=== PATIENT | male | born 1985 | race Caucasian/White ===

== ENCOUNTER 2016-11-15 17:51 | Inpatient (IN) ==
[2016-11-15 18:55] LABS: Hematocrit 45.9 % (37.5-50.1); Hemoglobin 15.9 g/dL (12.9-16.9); Mean Corpuscular HGB Conc 34.6 g/dL (31.6-35.5); Mean Corpuscular Hemoglobin 30.9 pg (28.0-33.3); Mean Corpuscular Volume 89.3 fL (83.0-100.0); Mean Platelet Volume 10.3 fL (9.4-12.4); Platelet Count 229 K/mcL (140-400); Red Blood Count 5.14 M/mcL (4.19-5.50); Red Cell Distribution Width 11.9 % (11.5-14.5)
--- NOTE | 2016-11-15 18:58 | Emergency Department Note ---
Disposition Clinical Impression: Suicidal ideation Disposition: Admitted As Inpatient Condition: Fair Psych HPI - General Chief Complaint: ED Psychiatric Symptoms Stated Complaint: psych eval/SI Time Seen by Provider: 11/15/16 18:03 Source: patient Nursing Notes Reviewed: Yes Vital Signs Reviewed: Yes - History of Present Illness HPI Narrative: The patient does have a history of psychiatric illness and he does have a history of substance abuse including crack as well as pills and he presents with depression and crying which has been going on for some time it was the last several days, constant, no medication has been used and the patient does have suicidal ideation. Does have a plan to take pills to overdose. He has tried to overdose in the past. Social history: Smoker, occasional alcohol, crack as well as pill use. He is here with his mother. - Related Data Home Medications Medication Instructions Recorded Confirmed No Known Home Drugs 11/15/16 11/15/16 Allergies Allergy/AdvReac Type Severity Reaction Status Date / Time No Known Allergies Allergy Verified 11/15/16 17:56 Review of Systems: Constitutional: No fever Vision: No blurred vision ENT: No rhinorrhea Respiratory: No cough Allergic: No allergies : No blood in urine GI: No blood in stool Hematologic: No bruising Dermatologic: No skin rash Musculoskeletal: No pain in the extremities Neuro: No numbness of the extremities Past Medical History - Past Medical History Medical history: Reports: no medical history - Social History Smoking Status: Current every day smoker Alcohol use: Reports: none Drug use: Reports: cocaine, other Physical Exam CONSTITUTIONAL: Alert and oriented X3, well-nourished, well appearing, in no apparent distress HEAD: Normocephalic; atraumatic. EYES: PERRL, no scleral icterus. NOSE: The nose is normal in appearance without rhinorrhea RESP: Normal chest excursion with respiration; breath sounds clear and equal bilaterally; no wheezes, rhonchi, or rales CARD: Regular rhythm, without murmurs, rub or gallop ABD: Non-distended; non-tender, soft,without rigidity, rebound or guarding SKIN: Normal for age and race; warm and dry; no apparent lesions - General Limitations: no limitations General appearance: alert Course Vital Signs Temperature 97.4 F L 11/15/16 17:52 Pulse Rate 71 11/15/16 17:52 Respiratory Rate 16 11/15/16 17:52 Blood Pressure 136/90 11/15/16 17:52 O2 Sat by Pulse Oximetry 98 11/15/16 17:52 Temperature 98.8 F 11/15/16 21:45 Pulse Rate 81 11/15/16 21:45 Respiratory Rate 14 11/15/16 21:45 Blood Pressure 109/77 11/15/16 21:45 O2 Sat by Pulse Oximetry 97 11/15/16 20:32 Oxygen Delivery Oxygen Delivery Room Air Psych - MDM Narrative Medical decision making narrative: The patient does have orders for labs, 1A is consulted, I did write for a sitter. The patient is currently resting comfortably in the bed. His mother is at bedside. 1857 - Lab Data Result diagrams: 11/15/16 18:23 11/15/16 18:23 Lab Results 11/15/16 11/15/16 11/15/16 Range/Units 18:12 18:23 18:23 WBC 8.1 (4.3-11.1) K/mcL RBC 5.14 (4.19-5.50) M/mcL Hgb 15.9 (12.9-16.9) g/dL Hct 45.9 (37.5-50.1) % MCV 89.3 (83.0-100.0) fL MCH 30.9 (28.0-33.3) pg MCHC 34.6 (31.6-35.5) g/dL RDW 11.9 (11.5-14.5) % Plt Count 229 (140-400) K/mcL MPV 10.3 (9.4-12.4) fL Sodium 136 (136-145) mEq/L Potassium 3.7 (3.5-4.5) mEq/L Chloride 102 (98-109) mEq/L Carbon Dioxide 22 (19-29) mEq/L BUN 11 (8-26) mg/dL Creatinine 0.93 (0.72-1.25) mg/dL Est GFR ( Amer) > 60 (> 60) Est GFR (Non-Af Amer) > 60 (> 60) BUN/Creatinine Ratio 12 (6-26) Glucose 103 H (70-99) mg/dL Calculated Osmolality 282 (280-300) Calcium 9.4 (8.6-10.8) mg/dL Salicylates < 5.0 L (15-30) mg/dL Urine Opiates Screen Negative (Mkzfxl=961) ng/mL Acetaminophen < 1.0 L (10-30) mcg/mL Ur Barbiturates Screen Negative (Btxong=632) ng/mL Ur Phencyclidine Scrn Negative (Cutoff=25) ng/mL Ur Amphetamines Screen Positive H (Nwadta=4983) ng/mL U Benzodiazepines Scrn Negative (Prvpac=518) ng/mL Urine Cocaine Screen Positive H (Cutoff= 300) ng/mL U Marijuana (THC) Screen Positive H (Cutoff = 50) ng/mL Ethyl Alcohol < 10 (0-10) mg/dL Psychiatric Medical Clearance - Medical Clearance Checklist Medical History: No Social History Section defined Current Vitals: Last Vital Signs Temp 98.8 F 11/15/16 21:45 Pulse 81 11/15/16 21:45 Resp 14 11/15/16 21:45 BP 109/77 11/15/16 21:45 Pulse Ox 97 11/15/16 20:32 Psychiatric Lab Panel: Drug Levels and Toxicity 11/15/16 11/15/16 18:12 18:23 Urine Opiates Screen Negative Acetaminophen < 1.0 L Ur Barbiturates Screen Negative Ur Phencyclidine Scrn Negative Ur Amphetamines Screen Positive H U Benzodiazepines Scrn Negative Urine Cocaine Screen Positive H U Marijuana (THC) Screen Positive H Ethyl Alcohol < 10 Abnormal Labs: Abnormal lab results Glucose 103 mg/dL (70-99) H 11/15/16 18:23 Salicylates < 5.0 mg/dL (15-30) L 11/15/16 18:23 Acetaminophen < 1.0 mcg/mL (10-30) L 11/15/16 18:23 Ur Amphetamines Screen Positive ng/mL (Ksqqob=3841) H 11/15/16 18:12 Urine Cocaine Screen Positive ng/mL (Cutoff= 300) H 11/15/16 18:12 U Marijuana (THC) Screen Positive ng/mL (Cutoff = 50) H 11/15/16 18:12 Statement of Medical Clearance: I have evaluated the patient, reviewed diagnostic information, and certify that the patient's medical condition is sufficiently stable that transfer to the psychiatric unit does not pose a significant risk of deterioration.
[2016-11-15 19:05] LABS: Amphetamine Screen,Urine Positive ng/mL (Cutoff=1000); Barbiturate Screen,Urine Negative ng/mL (Cutoff=200); Benzodiazepines Screen,Urine Negative ng/mL (Cutoff=200); Cannabinoid Screen,Urine Positive ng/mL (Cutoff = 50); Cocaine Screen,Urine Positive ng/mL (Cutoff= 300); Opiate Screen,Urine Negative ng/mL (Cutoff=300); Phencyclidine Screen,Urine Negative ng/mL (Cutoff=25)
[2016-11-15 19:07] LABS: BUN/Creatinine Ratio 12 (6-26); Blood Urea Nitrogen 11 mg/dL (8-26); Calcium 9.4 mg/dL (8.6-10.8); Carbon Dioxide 22 mEq/L (19-29); Chloride 102 mEq/L (98-109); Glucose 103 mg/dL (70-99); Osmolality,Calculated 282 (280-300); Potassium 3.7 mEq/L (3.5-4.5); Sodium 136 mEq/L (136-145); eGFR For African Americans > 60 (> 60); eGFR For Non-African Americans > 60 (> 60)
[2016-11-15 19:15] LABS: Acetaminophen < 1.0 mcg/mL (10-30); Ethanol < 10 mg/dL (0-10); Salicylate < 5.0 mg/dL (15-30)
[2016-11-15] MEDS ORDERED: diazePAM 10 MG TABLET PO ONE (21:15)
[2016-11-15] MEDS ORDERED: hydrOXYzine pamoate 25 MG CAPSULE PO PRN (21:39)
[2016-11-15] MEDS ORDERED: Mag Hydrox/Al Hydrox/Simeth 30 ML UDC PO PRN (21:39)
[2016-11-15] MEDS ORDERED: *HR* LORazepam 1 MG TABLET PO PRN (21:39)
[2016-11-15] MEDS ORDERED: *HR* LORazepam 2 MG/ML VIAL IM PRN (21:39)
[2016-11-15] MEDS ORDERED: Haloperidol Lactate 5 MG/ML VIAL IM PRN (21:39)
[2016-11-15] MEDS ORDERED: MOM Conc 10 ML UD.LIQ PO PRN (21:39)
[2016-11-15] MEDS ORDERED: Acetaminophen 325 MG TABLET PO PRN (21:39)
--- NOTE | 2016-11-16 12:54 | Psychiatry History & Physical ---
Date of Encounter: 11/16/16 Time of Encounter: 12:50 History of Present Illness Patient Stated Chief Complaint: Suicidal Medicare Admission Attestation: For traditional Medicare patients the provided hospital inpatient services are reasonable and necessary and in the case of services not specified as inpatient -only under 42 CFR 419.22 (n), that they are appropriately provided as inpatient services in accordance 42 CFR 412.3. For Critical Access Hospital the patient may reasonably be expected to be discharged or transferred to a hospital within 96 hours after admission to the Critical Access Hospital. Admitted From: Emergency Dept History of Present Illness: Mr. Chris is a 31 year old male admitted from the emergency room for evaluation and treatment of depression and suicidal ideation and substance abuse and dependence. Patient had no previous history of psychiatric treatment he was treated for ADHD as a child he has been on disability for most of his life and he had a third grade level education and no history of employment and he spent all his time looking for drugs to use including amphetamine and marijuana and cocaine. His labs showed positive screen for cocaine and amphetamine and THC. Patient states he became helpless and hopeless and he was thinking about suicide and he was attempting to get help as an outpatient and he could not get any appointments as a result he came to the emergency room. Past Med Surg Social Fam HX - Past Medical History Medical history: no medical history - Past Psychiatric History Psychiatric history: Reports: no psych history Family psychiatric history: Unknown Family History of Suicide: Unknown - Past Surgical History Surgical History: no surgical history - Social History Smoking Status: Current every day smoker Smokeless Tobacco Status: No Alcohol use: none Drug use: cocaine, other - Family History Mother Hx Family Cancer: Yes Medications & Allergies No Known Home Drugs 11/15/16 [History] Allergies No Known Allergies Allergy (Verified 11/15/16 17:56) Review of Systems Psychiatric: Reports: depression, abnormal sleep pattern, suicidal ideation, hopelessness, irritability, mood swings, other (Polysubstance dependence. Cocaine, amphetamine and THC) Mental Status Exam Patient orientation: Yes Person, Yes Time, Yes Place Level of alertness: Alert Patient appearance: Appropriate, Disheveled, Average Behavior: cooperative, nervous, anxious, restless, guarded Psychomotor activity: Increased Eye contact: Maintains Eye Contact Mood description: Depressed, Anxious, Labile, Irritable Affect description: congruent with mood, labile, constricted, dysphoric Speech pattern: Normal rate, Normal rhythm, Normal tone Speech volume: Normal Thought process: Linear, Goal Oriented Thought content: Yes Suicidal ideation, No Homicidal ideation, No Overt delusions Perceptual disturbances: No Auditory hallucinations, No Visual hallucinations Attention span: Capable of Focused Attention Memory description: Grossly Intact, Remote Impaired Patient reliability: Questionable Historian Intelligence estimate: Average Judgment: Limited Insight: Partial Results - Vital Signs Vital signs: Temp Pulse Resp BP Pulse Ox 98.2 F 61 16 102/58 97 11/16/16 09:00 11/16/16 09:00 11/16/16 09:00 11/16/16 09:00 11/15/16 20:32 - Labs Labs: Laboratory Last Values WBC 8.1 K/mcL (4.3-11.1) 11/15/16 18:23 RBC 5.14 M/mcL (4.19-5.50) 11/15/16 18:23 Hgb 15.9 g/dL (12.9-16.9) 11/15/16 18:23 Hct 45.9 % (37.5-50.1) 11/15/16 18:23 MCV 89.3 fL (83.0-100.0) 11/15/16 18:23 MCH 30.9 pg (28.0-33.3) 11/15/16 18:23 MCHC 34.6 g/dL (31.6-35.5) 11/15/16 18:23 RDW 11.9 % (11.5-14.5) 11/15/16 18:23 Plt Count 229 K/mcL (140-400) 11/15/16 18:23 MPV 10.3 fL (9.4-12.4) 11/15/16 18:23 Sodium 136 mEq/L (136-145) 11/15/16 18:23 Potassium 3.7 mEq/L (3.5-4.5) 11/15/16 18:23 Chloride 102 mEq/L (98-109) 11/15/16 18:23 Carbon Dioxide 22 mEq/L (19-29) 11/15/16 18:23 BUN 11 mg/dL (8-26) 11/15/16 18:23 Creatinine 0.93 mg/dL (0.72-1.25) 11/15/16 18:23 Est GFR ( Amer) > 60 (> 60) 11/15/16 18:23 Est GFR (Non-Af Amer) > 60 (> 60) 11/15/16 18:23 BUN/Creatinine Ratio 12 (6-26) 11/15/16 18:23 Glucose 103 mg/dL (70-99) H 11/15/16 18:23 Calculated Osmolality 282 (280-300) 11/15/16 18:23 Calcium 9.4 mg/dL (8.6-10.8) 11/15/16 18:23 Salicylates < 5.0 mg/dL (15-30) L 11/15/16 18:23 Urine Opiates Screen Negative ng/mL (Vkwsak=289) 11/15/16 18:12 Acetaminophen < 1.0 mcg/mL (10-30) L 11/15/16 18:23 Ur Barbiturates Screen Negative ng/mL (Vkilpd=818) 11/15/16 18:12 Ur Phencyclidine Scrn Negative ng/mL (Cutoff=25) 11/15/16 18:12 Ur Amphetamines Screen Positive ng/mL (Ouclyu=7279) H 11/15/16 18:12 U Benzodiazepines Scrn Negative ng/mL (Pqyvjb=755) 11/15/16 18:12 Urine Cocaine Screen Positive ng/mL (Cutoff= 300) H 11/15/16 18:12 U Marijuana (THC) Screen Positive ng/mL (Cutoff = 50) H 11/15/16 18:12 Ethyl Alcohol < 10 mg/dL (0-10) 11/15/16 18:23 Assessment and Plan (1) Mood disorder, drug-induced Current visit: Yes Status: Acute Plan: Admit inpatient for safety and stabilization, Close observation, Suicide Precautions per unit protocol, Encourage participation in unit milieu, Group Therapy, Monitor sleep, Monitor appetite Additional Plan: We will start patient on Depakote and citalopram benefits and side effects were discussed patient is agreeable to start treatment and we will monitor. Risks, benefits, side effects, alternatives discussed w/pt: Yes Patient agreeable to treatment: Yes (2) Polysubstance dependence including opioid type drug, continuous use Current visit: Yes Status: Acute Plan: Admit inpatient for safety and stabilization, Close observation, Suicide Precautions per unit protocol, Encourage participation in unit milieu, Group Therapy, Monitor sleep, Monitor appetite Risks, benefits, side effects, alternatives discussed w/pt: Yes Patient agreeable to treatment: Yes
[2016-11-16] MEDS: Divalproex (12 HR) 500 MG TABLET PO SCH ×2 (13:37→20:07)
[2016-11-16] MEDS: traZODone 50 MG TABLET PO PRN (20:07)
[2016-11-17] MEDS: Divalproex (12 HR) 500 MG TABLET PO SCH ×2 (08:51→20:37)
--- NOTE | 2016-11-17 13:34 | Psychiatry Progress Note ---
Date of Encounter: 11/17/16 Time of Encounter: 13:30 Subjective Interval history: Patient she will follow-up. Staff reports he is compliant with medication and denied any side effects. He reports improved sleep and less anxiety. I had a long discussion with him regarding this medication and compliance with treatment. I explained the benefits of medication and and blood level check to adjust the dose of Depakote. He is optimistic and encouraged not to use drugs anymore and also still interested in drug rehabilitation. He denies any withdrawal symptoms. And he denies any suicidal ideation. Review of Systems Psychiatric: Reports: depression, abnormal sleep pattern, suicidal ideation, hopelessness, irritability, mood swings, other (Polysubstance dependence. Cocaine, amphetamine and THC) Objective: Exam Patient orientation: Yes Person, Yes Time, Yes Place Level of alertness: Alert Patient appearance: Appropriate, Disheveled, Average Behavior: calm, cooperative, anxious, restless Psychomotor activity: Normal Eye contact: Maintains Eye Contact Mood description: Euthymic/stable, Anxious, Labile, Irritable Affect description: congruent with mood, labile Speech pattern: Normal rate, Normal rhythm, Normal tone Speech volume: Normal Thought process: Linear, Goal Oriented Thought content: No Suicidal ideation, No Homicidal ideation, No Overt delusions Perceptual disturbances: No Auditory hallucinations, No Visual hallucinations Judgment: Limited Insight: Partial Results - Vital Signs Vital Signs: Temp Pulse Resp BP Pulse Ox 98.4 F 99 16 104/69 97 11/17/16 08:59 11/17/16 08:59 11/16/16 20:30 11/17/16 08:59 11/15/16 20:32 Assessment and Plan (1) Mood disorder, drug-induced Current visit: Yes Status: Acute Plan: Continue hospitalization, Close observation, Suicide Precautions per unit protocol, Encourage participation in unit milieu, Group Therapy, Monitor sleep, Monitor appetite Additional Plan: Will check Depakote level in a.m. Risks, benefits, side effects, alternatives discussed w/pt: Yes Patient agreeable to treatment: Yes (2) Polysubstance dependence including opioid type drug, continuous use Current visit: Yes Status: Acute Plan: Continue hospitalization, Close observation, Suicide Precautions per unit protocol, Encourage participation in unit milieu, Group Therapy, Monitor sleep, Monitor appetite Risks, benefits, side effects, alternatives discussed w/pt: Yes Patient agreeable to treatment: Yes Consult Discharge Plan - Plan Referrals: NO,PCP [Primary Care Provider] -
[2016-11-17] MEDS: traZODone 50 MG TABLET PO PRN (20:46)
[2016-11-18] MEDS: Divalproex (12 HR) 500 MG TABLET PO SCH ×2 (09:12→21:48)
--- NOTE | 2016-11-18 19:09 | Psychiatry Progress Note ---
Date of Encounter: 11/18/16 Time of Encounter: 19:00 Subjective Interval history: Pt reports taht he is feeling better with no suicidal thoughts. He is still very much intereasted in pursuing treatment for cocaine use after leaving here and has lined up one . He is sleeping OK with a sleeper and his mood is stable now. Review of Systems Psychiatric: Reports: depression, abnormal sleep pattern, irritability, other ( Polysubstance dependence. Cocaine, amphetamine and THC) Objective: Exam Patient orientation: Yes Person, Yes Time, Yes Place Level of alertness: Alert Patient appearance: Appropriate, Well Groomed, Average Behavior: calm, cooperative Psychomotor activity: Normal Eye contact: Maintains Eye Contact Mood description: Euthymic/stable, Anxious, Irritable Affect description: congruent with mood, labile Speech pattern: Normal rate, Normal rhythm, Normal tone Speech volume: Normal Thought process: Linear, Goal Oriented Thought content: No Suicidal ideation, No Homicidal ideation, No Overt delusions Perceptual disturbances: No Auditory hallucinations, No Visual hallucinations Judgment: Limited Insight: Partial Results - Vital Signs Vital Signs: Temp Pulse Resp BP Pulse Ox 98.2 F 69 16 113/69 97 11/18/16 09:00 11/18/16 09:00 11/18/16 09:00 11/18/16 09:00 11/15/16 20:32 Assessment and Plan (1) Mood disorder, drug-induced Current visit: Yes Status: Acute Plan: Continue hospitalization, Close observation, Encourage participation in unit milieu, Group Therapy, Monitor sleep, Monitor appetite Additional Plan: Will check Depakote level in a.m. Depakote level slightly low but is a non steady state level. Recommend that pt should get on Naltrexone for his AOD. Risks, benefits, side effects, alternatives discussed w/pt: Yes Patient agreeable to treatment: Yes Consult Discharge Plan - Plan Referrals: [facility] [Outside] Raymon Nash, PAC [Physician Biology Lecturer] -
[2016-11-18] MEDS: traZODone 50 MG TABLET PO PRN (21:49)
[2016-11-19] MEDS: Divalproex (12 HR) 500 MG TABLET PO SCH (08:32)
[2016-11-19 10:28] VITALS: BP 115/75
--- NOTE | 2016-11-19 16:06 | Discharge Summary ---
Date of Encounter: 11/19/16 Time of Encounter: 14:00 Diagnosis - Discharge Diagnosis (1) Mood disorder, drug-induced Status: Acute Medications - Discharge Medications Prescriptions: Citalopram [CeleXA] 20 mg PO DAILY #30 tablet Divalproex (12 HR) [Depakote (12 HR)] 500 mg PO BID #60 tablet. TraZODone 50 mg PO HS PRN #14 tablet PRN Reason: Insomnia Citalopram [CeleXA] 20 mg PO DAILY #30 tablet 11/19/16 [Rx] Divalproex (12 HR) [Depakote (12 HR)] 500 mg PO BID #60 tablet. 11/19/16 [Rx] TraZODone 50 mg PO HS PRN #14 tablet 11/19/16 [Rx] Allergies No Known Allergies Allergy (Verified 11/15/16 17:56) Results Procedures and tests throughout hospitalization: Completed Lab Orders Category Date Time Status Valproate Routine Lab 11/17/16 14:20 Completed Provider Date of admission: 11/15/16 21:39 Primary care physician: PCP NO Discharging clinician: aMgen Johnson Assessment and Plan - Follow up Plan Follow up with: [facility] [Outside] - 11/26/16 11:30 am (The above appointment is with Frances Yancey, counselor at [facility]. Your first appointment will be very thorough and the total appointment time will take between two and three hours. You will be completing paperwork, meeting with a counselor and a nurse, and developing a treatment plan. You will receive follow- up appointments for on-going services , which could include counseling and community support. Please bring the following with you to your first visit to the clinic: 1) proof of household income (two consecutive pay stubs, social security award letter, bank statement , statement letter from [facility], child support statement, IRS 1040 or W2 form, or a statement from the person who financially supports you stating they help provide for your basic needs), 2) proof of residency (drivers license, a piece of mail showing your address, a statement from person you live with verifying you live at their address), 3) your social security card, 4) photo ID, and 5) your insurance card (if you have commercial insurance you must call to obtain a prior authorization number before you arrive to your first appointment). If you do not bring these items, you will not be seen.) Raymon Nash, ALFREDO [Physician Right Of Way Clearer] - 12/11/16 10:00 am (The above appointment is with Raymon Saad at [facility]. This appointment is to establish you with a primary care provider. Your needs for psychiatric medication and/or Vivitrol will be assessed for and treated as well. Please arrive 15 minutes early to complete paperwork. Please bring your insurance card, photo ID and list of current medications to your first appointment.) Disposition: Home, Self-Care Hospital Course Hospital course: Mr. Chris is a 31 year old male who was admitted for suicidal thoughts. Pt has cocaine dependence and was feeling tired of abusing it. He was diagnosed with a mood d/o and started on Depakote and Celexa with good tolerability. Pt has a rehab lined up to go to after discharge from here. Pt's Depakote level was 43 but it was a non steady state level only to assure pt is not in the toxic range. He interacted well with peers and staff. He is scheduled to F/U with a prescriber in 20 days. Time spent discussing smoking cessation with patient: 3 to 10 minutes Does patient wish to continue nicotine replacement upon disc: No - Time Spent with Patient Total time spent providing and/or coordinating discharge services: Less than 30 minutes Quality - Multiple Antipsychotics Patient discharged on 2 or more antipsychotic medications: No Mental Status Exam - Mental Status Exam Patient orientation: Yes Person, Yes Time, Yes Place Level of alertness: Alert Patient appearance: Appropriate, Well Groomed, Average Behavior: calm, cooperative Psychomotor activity: Normal Eye contact: Maintains Eye Contact Mood description: Euthymic/stable, Anxious, Irritable Affect description: congruent with mood, labile Speech pattern: Normal rate, Normal rhythm, Normal tone Speech Volume: Normal Thought process: Linear, Goal Oriented Thought Content: No Suicidal ideation, No Homicidal ideation, No Overt delusions Perceptual Disturbances: No Auditory hallucinations, No Visual hallucinations Judgment: Limited Insight: Partial
== END 2016-11-19 17:05 | disposition home or self-care (01) | DRG 897 ==
LOC: EMEROO 17:51 → 1ANU 17:51
PROVIDERS: ADMIT Psychiatry & Neurology Psychiatry; ATTEND Psychiatry & Neurology Psychiatry